=== PATIENT | male | born 1975 | race African-American/Black ===

== ENCOUNTER 2016-11-20 21:22 | Emergency (ER) | payer BC, OTHER ==
[~2016-11-20] VITALS: Ht 180.3 cm; Wt 117.9 kg
--- NOTE | ~2016-11-20 | EKG ---
PATIENT: ЕЛЕНА IQBAL UNIT #: [id number] Ventricular Rate: 83 BPM Atrial Rate: 83 BPM P-R Interval: 150 ms QRS Duration: 86 ms Q-T Interval: 378 ms QTC Calculation(Bezet): 444 ms P [place]: 64 degrees Calculated R [place]: 74 degrees Calculated T [place]: 51 degrees Diagnosis Line: Normal sinus rhythm Diagnosis Line: Normal ECG Diagnosis Line: No previous ECGs available Diagnosis Line: Confirmed by PO WILLS MD ([id number]) on Diagnosis Line: 11/21/2016 7:54:57 AM INTERPRETING MD: ELMA NORRIS
--- NOTE | ~2016-11-20 | CT16 ---
[facility] A Service of [facility] & [facility] RADIOLOGY TEXT RESULTS PATIENT: ЕЛЕНА IQBAL LOCATION: [facility] : [birth year] UNIT #: [id number] AGE: [address]: Manny Barrera DO SEX: M ORDER DR: [id number] [facility] [address] [place], [place] [address] [id number] E MR#: [id number] #: [id number] NAME: ЕЛЕНА IQBAL : 1975 SEX: M STUDY DATE/TIME: 11/21/2016 01:35 UNIT: [facility] ROOM: STUDY DESCRIPTION: CT Angio Chest for PE Attending Physician: Manny Barrera D.O. Ordering Physician: Manny Barrera D.O. Primary Care Physician: Primary Care Physician No MEDICAL IMAGING REPORT This report is preliminary unless electronic signature is present EXAM Chest CTA 11/21/2016 01:35 INDICATION Chest pain under the left breast for 2 weeks, worse since 5 o'clock last night. History of smoking. Abnormal chest x-ray this morning showing a hyperlucent right lung. TECHNIQUE Axial images were obtained through the chest following IV contrast administration. 3-D reformats were obtained. Comparison made with chest x-ray from the same day. No comparison chest CT. This CT examination was performed with one or more of the following radiation dose reduction techniques: automatic exposure control, adjustment of mA and/or kV according to patient size, and iterative reconstruction. FINDINGS There is no pulmonary embolism or aortic dissection. There is no pleural or pericardial effusion. There is no adenopathy. There is pulmonary emphysema. The right lung is hyperlucent relative to the left, predominantly in the upper and lower lobes but to a lesser degree in the right middle lobe. No acute infiltrates are seen on either side. There are no suspicious pulmonary nodules. Question is raised of some mild bronchiectasis in the right upper and right lower lobe. 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 No endobronchial lesions are identified. The upper abdomen shows fatty infiltration of the liver. IMPRESSION 1. No pulmonary embolism or aortic dissection. 2. Pulmonary emphysema. 3. Hyperlucent, hyperexpanded right lung predominantly in the upper and STS. [facility] A Service of [facility] & [facility] RADIOLOGY TEXT RESULTS PATIENT: ЕЛЕНА IQBAL LOCATION: [facility] : [birth year] UNIT #: [id number] AGE: [address]: Manny Barrera DO SEX: M ORDER DR: lower lobes but to a lesser degree in the right middle lobe. There is a suggestion of some bronchiectasis in the right upper and right lower lobes as well. 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 No endobronchial lesions or hilar masses are seen. 4. There are no acute pulmonary infiltrates and there are no suspicious pulmonary nodules. 5. Hepatic steatosis. Dictated by... Jef Menard Jr., M.D. THIS IS AN ELECTRONICALLY VERIFIED REPORT Jef Menard Jr., M.D. at 11/21/2016 9:10 PM MIKAEL/melvin TD: 11/21/2016 11:07 JOB #: [id number] MEDICAL IMAGING REPORT Page 1 of 1 COPY
--- NOTE | ~2016-11-20 | CR72 ---
[facility] A Service of [facility] & [facility] RADIOLOGY TEXT RESULTS PATIENT: ЕЛЕНА IQBAL LOCATION: [facility] : 79 UNIT #: [id number] AGE: [address]: Manny Barrera DO SEX: M ORDER DR: [id number] [facility] [address] [place], [place] [address] [id number] E MR#: [id number] #: [id number] NAME: ЕЛЕНА IQBAL : 1975 SEX: M STUDY DATE/TIME: 11/21/2016 00:00 UNIT: [facility] ROOM: STUDY DESCRIPTION: CR Chest Single View Portable Attending Physician: Manny Barrera D.O. Ordering Physician: Manny Barrera D.O. Primary Care Physician: Primary Care Physician No MEDICAL IMAGING REPORT This report is preliminary unless electronic signature is present EXAM Portable chest 11/21/2016 00:00 INDICATION Shortness of air and left side chest pain tonight, but intermittent over the last 2 weeks. FINDINGS AP portable chest is obtained. No comparison. Cardiac and mediastinal contours are normal. Minimal probable atelectasis noted left base. The right lung is relatively hyperlucent to the left. This is nonspecific. Possibility of air trapping from a central obstructing lesion not completely excluded. I would recommend followup with a contrast enhanced chest CT. IMPRESSION Probable left base atelectasis. Hyperlucent right lung is nonspecific. I would recommend followup with a contrast enhanced chest CT to exclude any central obstructing mass. Dictated by... Jef Menard Jr., M.D. THIS IS AN ELECTRONICALLY VERIFIED REPORT Jef Menard Jr., M.D. at 11/21/2016 9:10 PM MIKAEL/melvin TD: 11/21/2016 10:38 JOB #: [id number] MEDICAL IMAGING REPORT Page 1 of 1 COPY
[2016-11-21 00:03] LABS: BASOPHIL# 0.1 X10e3 (0-0.3); BASOPHIL% 0.7 % (0-2.5); EOSINOPHIL# 0.2 X10e3 (0-0.7); EOSINOPHIL% 1.2 % (0.0-7.0); HEMATOCRIT 39.7 % (38.0-50.0); HEMOGLOBIN 12.6 gm/dL (13.0-16.0); MEAN CELL VOLUME 80.2 FL (83-96); MEAN CORPUSCULAR HEMOGLOBIN 25.5 PG (28-34); MEAN CORPUSCULAR HGB CONC 31.8 g/dL (30-36); MEAN PLATELET VOLUME 9.2 FL (6.5-11.5); MONOCYTE# 1.1 X10e3 (0-1.0); MONOCYTE% 8.2 % (3.0-12.0); NEUTROPHIL# 6.9 X10e3 (1.5-7.1); NEUTROPHIL% 51.9 % (40-75); PLATELET COUNT 187 X10e3 (140-420); RED BLOOD COUNT 4.95 X10e (3.90-5.60); RED CELL DISTRIBUTION WIDTH 14.7 % (11.0-15.5); WHITE BLOOD COUNT 13.2 X10e3 (4.0-10.5)
[2016-11-21 00:05] LABS: DIFF IND NO
[2016-11-21 00:19] LABS: INR 0.9
[2016-11-21 00:19] LABS: POC - CKMB 2.4 ng/mL (0.0-7.9); POC - TROPONIN <0.05 ng/mL (<=0.05)
[2016-11-21 00:20] LABS: POC - CREATININE 0.84 mg/dL (0.64-1.27); POC - GFR >60.0 mL/min (>60)
[2016-11-21 00:28] LABS: ALBUMIN SERUM 4.2 g/dL (3.5-5.0); ALKALINE PHOSPHATASE 64 U/L (32-92); ALT (SGPT) 32 U/L (10-40); AST (SGOT) 30 U/L (10-42); BILIRUBIN,TOTAL 0.3 mg/dL (0.2-2.0); BLOOD UREA NITROGEN 17 mg/dL (9-23); BUN/CREATININE RATIO 15.45; CARBON DIOXIDE 26 mmol/L (22-31); CHLORIDE 106 mmol/L (100-111); CREATININE SERUM 1.1 mg/dL (0.6-1.4); GLOM FILT RATE Estimated 97.5 mL/min (>60); GLUCOSE FASTING 100 mg/dL (70-110); POTASSIUM 3.6 mmol/L (3.5-5.1); PROTEIN TOTAL SERUM 7.2 g/dL (6.0-8.3); SODIUM 135 mmol/L (135-145)
[2016-11-21 00:29] LABS: BILIRUBIN, DIRECT <0.1 mg/dL (0.0-0.2); BILIRUBIN,INDIRECT 0.2 mg/dL (0.0-0.9)
[2016-11-21 01:52] LABS: POC - CKMB 2.2 ng/mL (0.0-7.9); POC - TROPONIN <0.05 ng/mL (<=0.05)
== END 2016-11-21 02:45 | disposition left against medical advice (07) ==
LOC: CED 21:22
PROVIDERS: Emergency Medicine
DX: R07.89 Other chest pain (principal); F17.200 Nicotine dependence, unspecified, uncomplicated
CPT/HCPCS: 36415; 71010; 71275; 80048; 80076; 82553; 82565; 84484; 85025; 85379; 85610; 85730; 93005; 99285; Q9967